=== PATIENT | female | born 1995 | race Caucasian/White ===

== ENCOUNTER 2024-10-30 13:53 | Outpatient (CLI) | payer BC, SELFPAY ==
[2024-11-02 00:14] LABS: HPV Source Cervix; HPV, High Risk by TMA Not Detected
[2024-11-13 14:40] LABS: Pap Test Reviewed by Path Done
== END 2024-10-30 13:54 | disposition home or self-care (01) ==
PROVIDERS: Visit Provider Physician Assistant
DX: Z12.4 Encounter for screening for malignant neoplasm of cervix (principal); Z11.51 Encounter for screening for human papillomavirus (HPV)
CPT/HCPCS: 87624; 87625; 88141; 88142